=== PATIENT | female | born 1970 | race Caucasian/White ===

== ENCOUNTER 2021-11-15 13:50 | Emergency (ER) | payer MEDICAID, OTHER ==
[~2021-11-15] VITALS: Ht 157.5 cm; Wt 81.0 kg
[2021-11-15 13:58] VITALS: BP 125/84
[2021-11-15] MEDS ORDERED: VISCOUS LIDOCAINE 2% 15 ML UDC MM SCH (14:30)
[2021-11-15 14:51] LABS: BASOPHILS % 0.8 % (0.0-2.0); EOSINOPHILS % 2.1 % (0.0-5.0); HEMATOCRIT. 36.4 % (36.0-48.0); HEMOGLOBIN. 12.6 g/dL (12.0-16.0); MEAN CORPUSCULAR HEMOGLOBIN 31.5 pg (28.0-32.0); MEAN CORPUSCULAR VOLUME 90.9 fL (81.0-99.0); MEAN PLATELET VOLUME 8.8 fl (7.4-10.4); MONOCYTES % 8.9 % (2.0-8.0); NEUTROPHILS % 67.2 % (40.0-76.0); PLATELET 244 x1000/uL (130-400)
[2021-11-15 15:01] LABS: CHLORIDE 108 mEq/L (98-107)
[2021-11-15 15:13] LABS: ETHANOL BLOOD < 10 mg/dL
[2021-11-15] MEDS ORDERED: ONDA4TAB50 MT (17:30)
[2021-11-15] MEDS ORDERED: IBUP-2029 MT (17:30)
== END 2021-11-15 18:28 | disposition home or self-care (01) ==
LOC: ER 13:50
DX: K80.20 Calculus of gallbladder without cholecystitis without obstruction (principal); Z98.890 Other specified postprocedural states
CPT/HCPCS: 36415; 71045; 76705; 80053; 80320; 83880; 84484; 85025; 93005; 99285; G0480